=== PATIENT | female | born 2000 | race Caucasian/White ===

== ENCOUNTER 2018-01-17 12:45 | Emergency (ER) | payer MEDICAID ==
[~2018-01-17] VITALS: Ht 170.2 cm; Wt 81.7 kg
[2018-01-17 14:30] LABS: BASOPHILS ABSOLUTE AUTO 0.05 K/mm3 (0.00-0.23); BASOPHILS PERCENT AUTO 1 % (0-2); EOSINOPHILS ABSOLUTE AUTO 0.12 K/mm3 (0.00-0.68); EOSINOPHILS PERCENT AUTO 2 % (0-6); Hemoglobin 13.7 g/dL (11.5-16.0); IMMATURE GRAN ABSOLUTE AUTO 0.01 K/mm3 (0.00-0.10); IMMATURE GRAN PERCENT AUTO 0 % (0-1); LYMPHOCYTES ABSOLUTE AUTO 2.23 K/mm3 (0.84-5.20); LYMPHOCYTES PERCENT AUTO 35 % (21-46); MONOCYTES PERCENT AUTO 6 % (4-13); Mean Corpuscular HGB 27.5 pg (26.0-34.0); Mean Corpuscular HGB Conc 33.4 g/dL (31.5-36.5); Mean Corpuscular Volume 82 fL (80-100); Mean Platelet Volume 9.3 fL (9.1-12.4); NEUTROPHILS ABSOLUTE AUTO 3.53 K/mm3 (1.96-9.15); NEUTROPHILS PERCENT AUTO 56 % (41-73); Platelet Count 322 K/mm3 (150-400); RDW Coefficient Variation 12.3 % (11.7-14.2); RDW Standard Deviation 37.2 fL (35.1-46.3); Red Blood Cell Count 4.98 M/mm3 (3.80-5.20); White Blood Cell Count 6.34 K/mm3 (4.00-11.30)
[2018-01-17 14:52] LABS: Alanine Aminotransfer (ALT/SGP 33 U/L (12-78); Albumin, Blood 3.6 g/dL (3.4-5.0); Albumin/Globulin Ratio 0.9 (0.8-1.8); Alk Phos 105 U/L (45-116); Anion Gap 8 mmol/L (6-16); Aspartate Aminotrans (AST/SGOT 15 U/L (12-37); Bilirubin, Total 0.2 mg/dL (0.1-1.0); Blood Urea Nitrogen 9 mg/dL (8-21); Bun/Creatinine Ratio 16.8 (12.0-20.0); CO2, Blood 24 mmol/L (21-32); Calcium, Blood 8.5 mg/dL (8.5-10.1); Chloride, Blood 107 mmol/L (98-108); Creatinine, Blood 0.54 mg/dL (0.40-1.00); Globulin, Blood 3.9 g/dL (2.2-4.0); Glomerular Filtration Rate >60 (60-); Glucose, Blood 123 mg/dL (70-99); Potassium, Blood 4.1 mmol/L (3.5-5.5); Sodium, Blood 139 mmol/L (136-145); Total Protein, Blood 7.5 g/dL (6.4-8.2)
[2018-01-17] MEDS ORDERED: Naprosyn500 MG PO (15:04)
== END 2018-01-17 15:06 | disposition home or self-care (01) ==
LOC: ER 12:45
PROVIDERS: Physician Assistant
DX: M94.0 Chondrocostal junction syndrome [Tietze] (principal); R06.00 Dyspnea, unspecified
CPT/HCPCS: 71046; 80053; 85025; 93005; 93010; 99283

== ENCOUNTER 2025-02-14 13:48 | Emergency (ER) | payer OTHER ==
[~2025-02-14] VITALS: Ht 170.2 cm; Wt 122.5 kg
[~2025-02-14 13:48] MED LIST: Naprosyn500 MG PO
[2025-02-14 13:50] VITALS: BP 175/117
[2025-02-14 16:08] LABS: Chlamydia Trachomatis Urine NOT DETECTED (NOT DETECT); Neisseria Gonorrhoea Urine NOT DETECTED (NOT DETECT)
[2025-02-16 11:54] LABS: HIV 1,2 COMBO ANTIGEN/ANTIBODY Negative (Negative)
== END 2025-02-14 14:10 | disposition home or self-care (01) ==
LOC: ER 13:48
PROVIDERS: Physician Assistant
DX: Z11.3 Encounter for screening for infections with a predominantly sexual mode of transmission (principal); Z79.899 Other long term (current) drug therapy
CPT/HCPCS: 86592; 87389; 87491; 87591; 99284

== ENCOUNTER → 2025-06-05 | Outpatient (CLI) | payer OTHER ==
[~2025-06-05] MED LIST changes: +AMOX-CLAV 250-1 EACH PO; +ERYTHROMYCIN250 M1 PO; +PRED20 PO
== END ==
LOC: LAB SHORT 13:05 → LAB 13:05
DX: H10.33 Unspecified acute conjunctivitis, bilateral (principal)
CPT/HCPCS: 87070; 87205

== ENCOUNTER 2025-06-06 07:25 | Emergency (ER) | payer OTHER ==
[~2025-06-06] VITALS: Ht 170.2 cm; Wt 99.8 kg
[~2025-06-06 07:25] MED LIST changes: -AMOX-CLAV 250-1 EACH PO; -ERYTHROMYCIN250 M1 PO; -PRED20 PO
[2025-06-06 07:46] VITALS: BP 152/95
[2025-06-06] MEDS ORDERED: AMOX-CLAV 250-1 EACH PO (07:51)
[2025-06-06] MEDS ORDERED: ERYTHROMYCIN250 M1 PO (07:51)
[2025-06-06 09:11] LABS: Influenza A, PCR NEGATIVE (NEGATIVE); Influenza B, PCR NEGATIVE (NEGATIVE); Resp Syncytial Virus, PCR NEGATIVE (NEGATIVE); SARS-Cov-2 (COVID-19) PCR, MMC NEGATIVE (NEGATIVE)
[2025-06-06] MEDS ORDERED: Tetracaine HCl/Pf 0.5% Opth Soln 4 ml BOTHEYES ONE (09:35)
[2025-06-06] MEDS ORDERED: Dexamethasone Sod Phos 10 MG/ML 1ML VIAL PO ONE (09:35)
[2025-06-06] MEDS ORDERED: Fluorescein Sod 1MG Opth Strips BOTHEYES ONE (09:40)
== END 2025-06-06 10:56 | disposition home or self-care (01) ==
LOC: ER 07:25
PROVIDERS: Student in an Organized Health Care Education/Training Program
DX: J02.0 Streptococcal pharyngitis (principal); K11.20 Sialoadenitis, unspecified; H10.9 Unspecified conjunctivitis; Z88.8 Allergy status to other drugs, medicaments and biological substances; Z79.2 Long term (current) use of antibiotics
CPT/HCPCS: 87430; 87637; 99283; A9270; J1100

== ENCOUNTER 2025-06-07 22:03 | Emergency (ER) | payer OTHER ==
[~2025-06-07] VITALS: Ht 170.2 cm; Wt 104.3 kg
[~2025-06-07 22:03] MED LIST changes: +AMOX-CLAV 250-1 EACH PO; +ERYTHROMYCIN250 M1 PO
[2025-06-07 22:33] LABS: BASOPHILS ABSOLUTE AUTO 0.04 K/mm3 (0.00-0.23); BASOPHILS PERCENT AUTO 0 % (0-2); EOSINOPHILS ABSOLUTE AUTO 0.03 K/mm3 (0.00-0.68); EOSINOPHILS PERCENT AUTO 0 % (0-6); Hematocrit 39.6 % (33.0-51.0); Hemoglobin 13.3 g/dL (11.5-16.0); IMMATURE GRAN ABSOLUTE AUTO 0.04 K/mm3 (0.00-0.10); IMMATURE GRAN PERCENT AUTO 0 % (0-1); LYMPHOCYTES ABSOLUTE AUTO 2.14 K/mm3 (0.84-5.20); LYMPHOCYTES PERCENT AUTO 21 % (21-46); MONOCYTES ABSOLUTE AUTO 0.94 K/mm3 (0.16-1.47); MONOCYTES PERCENT AUTO 9 % (4-13); Mean Corpuscular HGB Conc 33.6 g/dL (31.5-36.5); Mean Corpuscular Volume 84 fL (80-100); NEUTROPHILS ABSOLUTE AUTO 7.14 K/mm3 (1.96-9.15); NEUTROPHILS PERCENT AUTO 69 % (41-73); NRBC ABSOLUTE 0.00 K/mm3 (0.00-0.02); NRBC Auto 0.0 /100 WBC (0.0-0.2); Platelet Count 300 K/mm3 (150-400); RDW Coefficient Variation 12.7 % (11.7-14.2); RDW Standard Deviation 39.1 fL (35.1-46.3)
[2025-06-07 22:54] LABS: Alanine Aminotransfer (ALT/SGP 32.0 U/L (12-78); Albumin, Blood 3.7 g/dL (3.4-5.0); Albumin/Globulin Ratio 0.9 (0.8-1.8); Anion Gap 11.0 mmol/L (3-11); Aspartate Aminotrans (AST/SGOT 18.0 U/L (12-37); Bilirubin, Total 0.3 mg/dL (0.1-1.0); Blood Urea Nitrogen 12.0 mg/dL (8-24); CO2, Blood 22.0 mmol/L (21-32); Calcium, Blood 8.3 mg/dL (8.5-10.1); Chloride, Blood 107.0 mmol/L (98-108); Creatinine, Blood 0.63 mg/dL (0.40-1.00); Globulin, Blood 4.1 g/dL (2.2-4.0); Glucose, Blood 97.0 mg/dL (70-99); Potassium, Blood 3.7 mmol/L (3.5-5.5); Sodium, Blood 136.0 mmol/L (136-145); Total Protein, Blood 7.8 g/dL (6.4-8.2)
[2025-06-07] MEDS ORDERED: Ketorolac Tromethamine 30mg Vial IV ONE (23:55)
[2025-06-07] MEDS ORDERED: Dexamethasone Sod Phos 10 MG/ML 1ML VIAL IV ONE (23:55)
[2025-06-08] MEDS ORDERED: PRED20 PO (00:04)
[2025-06-08] MEDS ORDERED: RX Prepack 6 Tabs Oxycodone 5mg UD ONE (00:05)
[2025-06-08 01:38] VITALS: BP 133/88
== END 2025-06-08 01:40 | disposition home or self-care (01) ==
LOC: ER 22:03
PROVIDERS: Student in an Organized Health Care Education/Training Program
DX: J02.0 Streptococcal pharyngitis (principal); E86.0 Dehydration; B30.9 Viral conjunctivitis, unspecified
CPT/HCPCS: 70491; 80053; 85025; 96361; 96374; 96375; 99283-25; A9270; J1100; J1885; J7120; Q9967